=== PATIENT | female | born 2000 | race American Indian/Alaskan Native ===

== ENCOUNTER → 2020-02-28 12:13 | Outpatient (CLI) | payer MEDICAID, OTHER, SELFPAY ==
--- NOTE | 2020-02-28 | DI.RAD.S_ITS ---
PROCEDURE: XR CHEST 2V INDICATIONS: POST COVID-19 CONDITION TECHNIQUE: 2 views of the chest were acquired. COMPARISON: None. FINDINGS: Surgical changes and devices: None. Lungs and pleura: Lungs are clear. No pleural effusions or pneumothorax. Mediastinum: Mediastinal contours are normal. Heart size is normal. Bones and chest wall: No suspicious bony abnormalities. Soft tissues appear unremarkable. IMPRESSION: Normal for age, no residual airspace disease is seen after reported prior atypical/viral pneumonia. Imaging from a prior pulmonary inflammatory event is not available for review.. Dictated by: Ezequiel Ulloa M.D. on 02/28/2020 at 14:34 Approved by: Ezequiel Ulloa M.D. on 02/28/2020 at 14:34
== END ==
PROVIDERS: Referring Provider Physician Assistant; Visit Provider Physician Assistant
DX: Z09 Encounter for follow-up examination after completed treatment for conditions other than malignant neoplasm (principal); Z86.16 Personal history of COVID-19
CPT/HCPCS: 71046

== ENCOUNTER → 2023-01-30 10:14 | Outpatient (CLI) | payer MEDICAID, OTHER, SELFPAY ==
--- NOTE | 2023-01-30 10:16 | DI.US.S_ITS ---
PROCEDURE: US PELVIC COMPLETE INDICATIONS: PELVIC PAIN, MICROSCOPIC HEMATURIA TECHNIQUE: Real-time scanning was performed of the pelvic organs, with image documentation. Additional endovaginal scanning was necessary due to incomplete visualization of the adnexal and endometrial structures by transabdominal scanning. COMPARISON: None. FINDINGS: Uterus: Uterus is anteverted and normal in size at 6.8 x 2.9 x 4.6 cm. The myometrium is homogeneous. The endometrium measures 6.2 mm combined thickness. Ovaries: The right ovary measures 2.6 x 3.4 x 2.8 cm, with a calculated ovarian volume of 13.1 cc. The left ovary measures 4.4 x 2.1 x 3.0 cm, with a calculated ovarian volume of 14.8 cc. The ovaries have a normal sonographic appearance. Less than 12 follicles can be seen in each ovary. No adnexal masses are seen. 2.5 x 2.0 cm hemorrhagic cyst is noted right ovary, and there is a 1.8 x 1.7 cm simple cyst noted in the left ovary. Additionally in the left ovary, there is a 1.2 x 1.3 x 1.4 cm in isoechoic lesion in the left ovary without internal vascularity Other: No pathologic free abdominal or pelvic fluid. IMPRESSION: 1. Isoechoic nodule left ovary 1.4 cm. Differential would include hemorrhagic cyst and less likely mass lesion. Consider follow-up MRI with contrast. 2. Additional 2.5 cm right ovarian hemorrhagic cyst. Approved by: Roscoe Shin M.D. on 01/30/2023 at 14:32
== END ==
PROVIDERS: Referring Provider Physician Assistant; Visit Provider Physician Assistant
DX: N83.201 Unspecified ovarian cyst, right side (principal); N83.9 Noninflammatory disorder of ovary, fallopian tube and broad ligament, unspecified; R31.29 Other microscopic hematuria; R10.2 Pelvic and perineal pain
CPT/HCPCS: 76830; 76856; 93975

== ENCOUNTER 2023-07-03 07:37 | Day surgery (SDC) | payer OTHER, SELFPAY ==
[2023-06-30 08:01] VITALS: BMI 46.0
[2023-07-03] VITALS (11 sets, daily range): BP systolic 97–126; BP diastolic 50–79; PULSE 64–99; RESP 12–18; TEMP 36.2–37.1; O2SAT 98–100; BMI 44.4
--- NOTE | 2023-07-03 | PATH_ITS ---
[facility] Accession Number: [id number] No. of containers..02 Tissue . 01 Material submitted: . PART A: CUL DE SAC - PERITONEAL, RIGHT ANTERIOR CUL DE SAC PART B: ovary - RIGHT OVARIAN CYST WALL . 01 Diagnosis: A. PERITONEUM, RIGHT ANTERIOR CUL-DE-SAC, BIOPSY: Endometriosis. . B. RIGHT OVARIAN CYST WALL, EXCISION: Endometriosis involving ovarian tissue, and forming endometriotic cyst. No evidence of borderline tumor or malignancy. [facility] 07/10/2023 1334 Local . 01 Electronically signed: . Mariel Benoit MD, Pathologist NPI- [id number] . 01 Gross description: . A. Received in formalin with two identifiers and an illegible site, is a navarro membranous soft tissue fragment 0.7 x 0.7 x 0.2 cm. No lesions are identified. One aspect is inked blue, the specimen is bisected, and submitted entirely in cassette A1. B. Received in formalin with two identifiers and right ovarian cyst wall, are multiple navarro membranous soft tissue fragments aggregating to 3.2 x 3.0 x 0.6 cm. Both sides of the membranous tissue are relatively smooth with no excrescenses identified and average 0.3 cm thick. Sectioning reveals navarro, soft cut surface. Submitted entirely in cassettes B1-B3. ([id number]) /[facility] 07/04/2023 2311 Local . 01 Pathologist provided ICD-10: N80.9 . 01 CPT . 384091, [id number] Specimen Comment: A courtesy copy of this report has been sent to [facility] Performed at: [address] [facility], [place], [place] [id number] MD Eleazar Teague MD Phone: [phone]
[2023-07-03] MEDS: LACTATED RINGERS 1,000 ML 42 ML IV ×2 (07:58→10:02)
[2023-07-03] MEDS: SCOPOLAMINE 1 PATCH TOP (07:58)
--- NOTE | 2023-07-03 08:53 | PM.PREOP ---
Pre-operative Note Interval Note History & Physical reviewed/Exam performed by Physician: Yes Changes to H&P: No H&P completed within 30 days and has changed as indicated here:: see H&P from 06/23/23
[2023-07-03] MEDS: ACETAMINOPHEN IV 1,000 MG/100 ML VIAL 400 MG IV (09:10)
--- NOTE | 2023-07-03 09:38 | SUR.OPER ---
Lithotomy on padded OR bed, head on pillow, arms secured on padded arm boards at <90 degrees abduction. Legs secured in padded yellow fins stirrups.
[2023-07-03] MEDS: BUPIVACAINE 0.25% (PF) VIAL 30 ML INJ (10:05)
--- NOTE | 2023-07-03 11:10 | PM.OP.1 ---
Operative Date/Time/Diagnoses Date of procedure: 07/03/23 Time of procedure: 09:15 Pre-op diagnosis: 1. Pelvic pain 2. Imaging findings of endometriosis Post-op diagnosis: same (Confirmed endometriosis visually) Procedure & Clinicians Procedure: Diagnostic laparoscopy Lysis of adhesions Fulguration and resection of endometriosis Right and left ovarian cystectomy Same procedure as scheduled: Yes Indications: 22yo G0 with pelvic pain and imaging findings with possible endometriosis, here for planned diagnostic laparoscopy with possible fulguration of endometriosis. Surgeon: Shira Wood Juvenile Corrections Officer: Cristiano Garza Click Yes if Unassisted: No Anesthesia Type: General Operative Notes Findings: Normal-appearing uterus with endometriotic adhesions noted. Bilateral ovaries with endometriotic adhesions involving bilateral fallopian tubes. Several powder burn lesions and stellate lesions noted throughout the pelvis. Bilateral chocolate cysts noted in the ovaries. Specimen(s): other (1. peritoneal biopsy 2. right ovarian cyst wall) Estimated Blood Loss (mL): 5 Blood products transfused: none Procedure in detail: The risks, benefits, indications and alternatives of the procedure were reviewed with the patient and informed consent was obtained. The pt was taken to the operating room where general anesthesia was obtained without difficulty. The pt was then placed in the low lithotomy position using gel-padded Oscar Stirrups. Sequential compression devices were placed bilaterally for VTE prophylaxis. Pt was then prepped and draped in the usual sterile fashion. A Bahena catheter was placed without difficulty. A sponge stick was placed in the vagina as a means to manipulate the uterus. Attention was then turned to the patient?s abdomen where a 5mm skin incision was made at the base of the umbilicus after it was everted and injected with 0.25% marcaine. A 5mm trocar and sleeve were then carefully introduced into the peritoneal cavity under direct visualization at a 90-degree angle while tenting up the abdominal wall. Intra-peritoneal placement was confirmed under direct visualization with the laparoscope with entry pressure <5mmHg. A pneumoperitoneum was obtained with several liters of CO2 gas, maximum pressure of 15mmHg. Upon entry into the peritoneal cavity, structures immediately below the incision were inspected and found to be free of injury. Two additional 5mm trocars were placed in the left lateral aspect of the abdominal wall, as well as a 5mm trocar in the right lateral aspect of the abdominal wall under direct laparoscopic visualization after injection of 0.25% marcaine at each site. A survey of the pt?s abdomen and pelvis was notable for the above findings. Monopolar scissors were used to lyse several adhesions between the left fallopian tube and left ovary, posterior lower uterine segment and right adnexa, and the right fallopian tube and right ovary. Using an atraumatic grasper, a powder burn lesion noted in the anterior cul-de-sac was grasped and tented up, and the peritoneum was excised with monopolar scissors. This biopsy was then sent to pathology. Several other powder burn lesions and stellate lesions were then fulgurated with monopolar cautery. The right ovary was then evaluated and noted to have a chocolate cyst that ruptured with manipulation. This cyst was then opened further with monopolar cautery, and was suction irrigated. The cyst capsule was then excised from the ovary with monopolar scissors, and the cyst wall was from the ovary bluntly. Hemostasis was assured with monopolar cautery. The left ovary was then evaluated, and noted to have a small chocolate cyst that also was ruptured with manipulation. The opening was suction irrigated, and there was no remaining cyst wall to be removed. Monopolar cautery was then used to assure hemostasis. All pedicles were re-examined and noted to be hemostatic. The gas was then turned off and all CO2 was removed from the pt?s abdomen. The trocars were removed. The skin incision sites were reapproximated using 4-0 monocryl and dermabond. The sponge stick was removed from the vagina, and the bahena catheter was removed from the bladder. All instruments were confirmed to be removed from the vagina. At the completion of the case the sponge and needle counts were correct x 2. The patient tolerated the procedure well and was taken to the PACU in stable condition. Complications: none Post-operative Condition: stable Disposition: PACU Plan for aftercare: Discharge to home once meeting discharge criteria.
[2023-07-03] MEDS: LORazepam 2 MG/ML INJ 0.25 MG IV ×3 (11:28→11:50)
[2023-07-03] MEDS: OXYCODONE IR 5 MG TABLET PO (11:29)
[2023-07-03] MEDS: ONDANSETRON 4 MG/2 ML INJ IV (12:53)
== END 2023-07-03 12:58 | disposition home or self-care (01) ==
PROVIDERS: PCP Family Medicine; Referring Provider Student in an Organized Health Care Education/Training Program; Visit Provider Student in an Organized Health Care Education/Training Program
PROC: 0U5B4ZZ Destruction of Endometrium, Percutaneous Endoscopic Approach (ICD-10-PCS; CPT 58662; principal; 2023-07-03 09:00)
DX: N80.319 Endometriosis of the anterior cul-de-sac, unspecified depth (principal); N80.103 Endometriosis of bilateral ovaries, unspecified depth; N80.203 Endometriosis of bilateral fallopian tubes, unspecified depth; N73.6 Female pelvic peritoneal adhesions (postinfective)
CPT/HCPCS: 58662; 81025; J0136; J1100; J1885; J2060; J2250; J2405; J2704; J3010

== ENCOUNTER → 2023-08-18 13:49 | Outpatient (CLI) | payer OTHER, SELFPAY ==
--- NOTE | 2023-08-18 13:54 | DIET.OUTPTC ---
Dietary Outpatient Consultation Note Consultation Date: 08/18/2023 Assessment: 23 y F referred to dietitian for endometriosis, obesity. Kiara reports wanting help with setting up an anti-inflammatory based eating pattern. 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 Other concerns/barriers include cost of fresh/fruit veg due to finances and sharing household fridge with brother's family (foods bought may not last as long as anticipated). No food related allergies reported Struggles with nausea 1-3x/wk, is doing pelvic floor therapy for constipation related symptoms Diet recall: a: bagel + cream cheese snack- pumpkin seeds L-sandwich (pb&j or turkey and cheese) 4p snack: crackers D--8p:sometimes out to eat, or homemade meal of meat, carb, veg sometimes ice cream, popcorn [facility] supplement daily beverages: iced coffee, water, diet coke activity: walking, surgery recently, previously was doing yoga, pilates Ht: 5 ft 1 in Wt: 234 lb BMI: 44.1 Nutrition Diagnosis: Nutrition related knowledge deficit r/t no previous formal educ aeb assessment Interventions: 1. Anti-inflammatory eating patterns, Med. eating patterns -5+ fruits and veg, plant based proteins, unsaturated fats, adequate protein intake, plate method, fiber, low-cost options -Provided handout 2. Goal setting with IA Goals: 1. Protein source at breakfast - nut butter, low-fat string cheese, or yogurt smoothie (25 g) 2. Storing fruits and vegs at fridge at work to increase intake during the day, 1-2x/d 3. Use of canned/frozen fruits/vegs (unsweetened applesauce, frozen veg at dinner), or brunner salad cooked ahead on Sundays Monitoring/Evaluations: goals, diet recall, labs, f/u in 1 m Electronically Signed by: Sandi Macias 08/18/23 13:54 Clinical Dietitian [address] [address]
== END ==
PROVIDERS: PCP Family Medicine; Referring Provider Student in an Organized Health Care Education/Training Program
DX: N80.9 Endometriosis, unspecified (principal); E66.9 Obesity, unspecified; Z68.41 Body mass index [BMI] 40.0-44.9, adult; Z71.3 Dietary counseling and surveillance
CPT/HCPCS: 97802

== ENCOUNTER → 2023-09-17 13:46 | Outpatient (CLI) | payer OTHER, SELFPAY ==
--- NOTE | 2023-09-17 16:39 | DIET.OUTPTC ---
Dietary Outpatient Consultation Note Consultation Date: 09/17/2023 Assessment: 23 y F referred to dietitian for endometriosis, obesity. Nutrition f/u. Reports recent difficulty getting in lunch consistently when at work and finding it challenging to add feasible and appealing vegetables to intake. Keeping food at work has helped out. 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 Discussed variety of realistic lunch options and feasible vegetable options 2. Increase fiber intake -Reviewed sources, swaps for whole grains, recc amount daily 3. Reviewed label reading for sat. fat, fiber, protein, sodium, added sugars Goals: 1. Consistent lunch (pre-prepped sandwich, yogurt +granola, ww crackers and cheese) 2. Vegetable with dip - ranch or hummus or brunner salad 3. Label reading frozen breakfast options Monitoring/Evaluations: goals, diet recall, labs, f/u in 2 m Electronically Signed by: Sandi Macias 09/17/23 16:39 Clinical Dietitian [address] [address]
== END ==
PROVIDERS: PCP Family Medicine; Referring Provider Student in an Organized Health Care Education/Training Program
DX: N80.9 Endometriosis, unspecified (principal); E66.9 Obesity, unspecified; Z68.41 Body mass index [BMI] 40.0-44.9, adult; Z71.3 Dietary counseling and surveillance
CPT/HCPCS: 97803

== ENCOUNTER 2023-09-30 16:49 | Emergency (ER) | payer OTHER, SELFPAY ==
[2023-09-30] VITALS (7 sets, daily range): BP systolic 112–121; BP diastolic 57–78; PULSE 71–85; RESP 14–18; TEMP 36.3–36.9; O2SAT 97–100; BMI 43.4
[2023-09-30 18:00] LABS: Add Manual Diff / Slide Review NO; Basophils Absolute Auto 100 /uL (0-100); Eosinophils Absolute Auto 100 /uL (0-450); Eosinophils Percent Auto 0.8 % (2-4); Hematocrit 39.3 % (36-46); Hemoglobin 13.1 g/dL (12.0-16.0); Lymphocytes Absolute Auto 3300 /uL (1100-4500); Lymphocytes Percent Auto 29.7 % (25-40); Mean Corpuscular HGB Conc 33.3 % (30-36); Mean Corpuscular Volume 84.3 fL (80-100); Monocytes Absolute Auto 700 /uL (0-900); Monocytes Percent Auto 5.8 % (3-14); Neutrophils Absolute Auto 7000 /uL (1500-7000); Neutrophils Percent Auto 62.7 % (50-75); Platelet Count 485 X10^3/uL (150-400); Red Blood Cell Count 4.66 X10^6/uL (4.0-5.2); Red Cell Distribution Width 13.4 % (11.6-14.8); White Blood Cell Count 11.2 X10^3/uL (4.5-11.0)
[2023-09-30 18:41] LABS: BUN Creatinine Ratio 14.5 (6-22); Blood Urea Nitrogen 12 mg/dL (7-17); Calcium 9.8 mg/dL (8.4-10.2); Carbon Dioxide 24 mmol/L (22-32); Chloride 103 mmol/L (98-107); Estimated Glomerular Filt Rate > 60 mL/min (>60); Glucose 85 mg/dL (70-100); HEMOLYSIS < 15 (0-50); Potassium 3.9 mmol/L (3.4-5.1); Sodium 137 mmol/L (137-145)
--- NOTE | 2023-09-30 18:45 | EKG_ITS ---
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
--- NOTE | 2023-09-30 18:45 | DI.RAD.S_ITS ---
PROCEDURE: XR CHEST 1V INDICATIONS: Shortness of breath TECHNIQUE: One view of the chest was acquired. COMPARISON: [facility], , XR CHEST 2V, 02/28/2020, 13:15. FINDINGS: Surgical changes and devices: None. Lungs and pleura: No dense consolidation or pleural effusion Mediastinum: Normal heart size Bones and chest wall: Degenerative changes IMPRESSION: No acute radiographic abnormality on this limited single view study. Dictated by: Florin Daily M.D. on 09/30/2023 at 19:26 Approved by: Florin Daily M.D. on 09/30/2023 at 19:27
--- NOTE | 2023-09-30 19:57 | ED.GENADULT ---
HPI - General Adult General Chief complaint: Vaginal Bleeding Stated complaint: short of breath, weakness Time Seen by Provider: 09/30/23 17:56 Source: patient Mode of arrival: Ambulatory History of Present Illness HPI narrative: Patient is a 23-year-old female. History of endometriosis. Has been having vaginal bleeding for the past 2 weeks. Yesterday was started on progesterone by a senior quality assurance specialist provider. She was a follow-up with a senior quality assurance specialist provider tomorrow morning. She states that the bleeding has improved but not completely stopped. She was having quite a bit of abdominal cramping. She was here because she was feeling weak and short of breath than she was told by the senior quality assurance specialist provider that she should come to the emergency department of the symptoms develop. No fevers. No coughing. No chest pain. Is having slight sore throat but no sinus congestion. Related Data Previous Rx's Medication Instructions Recorded medroxyprogesterone 10 mg tablet 10 mg PO DAILY 10 days #10 tabs 09/29/23 (Provera) Allergies Allergy/AdvReac Type Severity Reaction Status Date / Time cetirizine Allergy Mild Fever Verified 09/30/23 17:05 Review of Systems Review of Systems Narrative: See HPI Patient History Medical History Endometriosis determined by laparoscopy (~06/2023) Anxiety (~2018) Headache (~2022) Chronic back pain (~2022) Partial blindness Ovarian cyst (~2022) Heavy menstrual period (~2015) Endometrioma of ovary Pelvic pain Obesity, Class III, BMI 40-49.9 (morbid obesity) Surgical History (Updated 07/17/23 @ 12:18 by Shira Wood DO) H/O ovarian cystectomy (~06/2023) Status post laparoscopy with lysis of adhesions (~06/2023) H/O wisdom tooth extraction Family History Father Hypertension Social History household members: family Smoking Status: Never smoker alcohol intake: never substance use type: does not use Smoking Status: Never smoker alcohol intake frequency: holidays/special occasions only Substance Use Type: does not use Exam Initial Vital Signs Initial Vital Signs: Vital Signs Temperature 97.3 F L 09/30/23 17:05 Pulse Rate 84 09/30/23 17:05 Respiratory Rate 14 09/30/23 17:05 Blood Pressure 112/57 L 09/30/23 17:05 Pulse Oximetry 97 09/30/23 17:05 Oxygen Delivery Method Room Air 09/30/23 17:05 Const General: cooperative and comfortable HENMT Head: normal to inspection and normocephalic Resp Effort & Inspection: normal respiratory effort Auscultation: clear to auscultation bilaterally Cardio Rate: regular rate Rhythm: regular rhythm GI Inspection: normal to inspection and non-distended Skin General: no rashes or lesions noted Neuro General: patient alert, patient awake and moves all extremities Course Orders Ordered: ED Orders 09/30/23 17:49 Basic Metabolic Panel Stat Complete Blood Count AUTO DIFF Stat Type and Screen Stat 09/30/23 18:45 XR chest 1V Stat EKG-12 Lead Stat Vital Signs Vital signs: Vital Signs - 8 hr 09/30/23 17:05 09/30/23 18:23 09/30/23 18:23 Temperature 97.3 F L Pulse Rate 84 71 Respiratory Rate 14 Blood Pressure 112/57 L 121/71 Pulse Oximetry 97 100 Oxygen Delivery Method Room Air 09/30/23 18:24 09/30/23 18:30 09/30/23 18:30 Temperature Pulse Rate 83 73 Respiratory Rate 18 Blood Pressure 121/71 117/61 Pulse Oximetry 97 Oxygen Delivery Method 09/30/23 19:00 09/30/23 19:00 09/30/23 19:30 Temperature Pulse Rate 73 Respiratory Rate Blood Pressure 119/72 113/64 Pulse Oximetry 98 Oxygen Delivery Method 09/30/23 19:30 09/30/23 20:07 Temperature 98.5 F Pulse Rate 80 85 Respiratory Rate 18 18 Blood Pressure 117/78 Pulse Oximetry 97 98 Oxygen Delivery Method Room Air Medical Decision Making Lab Data Lab results reviewed: Yes I reviewed the patient's lab results. 09/30/23 17:49 09/30/23 17:49 Labs: Lab Results 09/30/23 Range/Units 17:49 WBC 11.2 H (4.5-11.0) X10^3/uL RBC 4.66 (4.0-5.2) X10^6/uL Hgb 13.1 (12.0-16.0) g/dL Hct 39.3 (36-46) % MCV 84.3 (80-100) fL MCH 28.0 (26-34) PG MCHC 33.3 (30-36) % RDW 13.4 (11.6-14.8) % Plt Count 485 H (150-400) X10^3/uL Neut % (Auto) 62.7 (50-75) % Lymph % (Auto) 29.7 (25-40) % Sherman % (Auto) 5.8 (3-14) % Eos % (Auto) 0.8 L (2-4) % Baso % (Auto) 1.0 (0-2) % Neut # (Auto) 7000 (7151-5190) /uL Lymph # (Auto) 3300 (4081-3685) /uL Sherman # (Auto) 700 (0-900) /uL Eos # (Auto) 100 (0-450) /uL Baso # (Auto) 100 (0-100) /uL Sodium 137 (137-145) mmol/L Potassium 3.9 (3.4-5.1) mmol/L Chloride 103 (98-107) mmol/L Carbon Dioxide 24 (22-32) mmol/L BUN 12 (7-17) mg/dL Creatinine 0.83 (0.52-1.04) mg/dL Estimated GFR > 60 (>60) mL/min BUN/Creatinine Ratio 14.5 (6-22) Glucose 85 (70-100) mg/dL Calcium 9.8 (8.4-10.2) mg/dL Blood Type O Positive Antibody Screen Negative Point of Care Testing Test Results Negative Urine Dip Bedside Urine Glucose Negative Bedside Urine Bilirubin - Negative Bedside Urine Ketone - Negative Urine Specific Lyndon 1.010 Bedside Urine Occult Blood +/- Bedside Urine pH 6.0 Bedside Urine Protein - Negative Bedside Urine Urobilinogen - Negative Bedside Urine Nitrite - Negative Bedside Urine Leukocytes - Negative Esterase Point of care testing: Point of Care Testing Test Results Negative Urine Dip Bedside Urine Glucose Negative Bedside Urine Bilirubin - Negative Bedside Urine Ketone - Negative Urine Specific Lyndon 1.010 Bedside Urine Occult Blood +/- Bedside Urine pH 6.0 Bedside Urine Protein - Negative Bedside Urine Urobilinogen - Negative Bedside Urine Nitrite - Negative Bedside Urine Leukocytes - Negative Esterase Imaging Data Chest x-ray: Radiologist's Impression: PROCEDURE: XR CHEST 1V INDICATIONS: Shortness of breath TECHNIQUE: One view of the chest was acquired. COMPARISON: [facility], CR, XR CHEST 2V, 02/28/2020, 13:15. FINDINGS: Surgical changes and devices: None. Lungs and pleura: No dense consolidation or pleural effusion Mediastinum: Normal heart size Bones and chest wall: Degenerative changes IMPRESSION: No acute radiographic abnormality on this limited single view study. ECG Data Attestation: I personally reviewed and interpreted this ECG as follows: Interpretation: Sinus rhythm Ventricular rate is 71 Normal axis Normal QRS Normal QTC No ST T wave changes MDM Narrative Medical decision making narrative: Patient is afebrile, not anemic, not tachypneic, not tachycardic. Chest x-ray shows no signs of pneumonia. EKG is sinus rhythm. Lungs are clear. Unsure of the exact source of the patient's shortness of breath however does not appear to be an infectious source. Low suspicion for pulmonary embolism. Low suspicion for pulmonary edema. Low suspicion for ACS. Will have the patient continue to take the progesterone. Have her keep her follow-up appointment tomorrow with her senior quality assurance specialist provider. No indication for admission to the hospital. She was given return precautions and follow-up instructions. She expressed understanding and agreement with plan. Discharge Plan Departure Patient Disposition: Home Clinical Impression: Shortness of breath Instructions: DI for Shortness of Breath Activity Restrictions/Additional Instructions: Continue to take the progesterone provided by the senior quality assurance specialist doctor. Keep your scheduled appointment tomorrow morning that you have for a follow-up. Return to the emergency department for new or worsening symptoms. Prescriptions: No Action medroxyprogesterone [Provera] 10 mg tablet 10 mg PO DAILY 10 Days Qty: 10 0RF Referrals: Darrel Ibrahim MD [Primary Care Provider] - Stand Alone Forms: Patient Portal/API
== END 2023-09-30 20:08 | disposition home or self-care (01) ==
PROVIDERS: Student in an Organized Health Care Education/Training Program; Emergency Provider Emergency Medicine; PCP Family Medicine
DX: R06.02 Shortness of breath (principal); R53.1 Weakness; R03.1 Nonspecific low blood-pressure reading
CPT/HCPCS: 71045; 80048; 81003; 81025; 85025; 86850; 86900; 86901; 93005; 99282; 99284

== ENCOUNTER → 2023-11-19 13:55 | Outpatient (CLI) | payer OTHER, SELFPAY ==
--- NOTE | 2023-11-19 15:26 | DIET.OUTPTC ---
Dietary Outpatient Consultation Note Consultation Date: 11/19/2023 Assessment: 23 y F referred to dietitian for endometriosis, obesity. Kiara looking for help with recognizing hunger/fullness cues. Notes lots of bdays in past month and lots of going out to eat. Eat breakfast at 7am, then lunch with kids at 11-1130am (notes is higher in carb - bread and potatoes w/ veg and fruit - and she feels tried after lunch), variable snacks in afternoon, sometimes 4p snack with kids (nuts, crackers, or chips). Notes 4pm snack is usually a social snack with kids. Has dinner and is satisfied afterwards. Reports she is wanting help with identifying hunger/fullness in the afternoon. Feels the 4p snack is unnecessary. Is questioning whether to do an elimination diet to identify what foods are making her inflammed. Has seen this on social media. Interventions: -Discussed hunger/fullness scale, intuitive eating - goal to use it throughout day and when out to eat -Handout on anti-inflammatory nutrition patterns -Reviewed pros and cons of elimination style diet and discussed alternatives. -Discussed addition of protein choice to lunch, short walk on break after lunch to help energy levels -Discussed optimizing nutrition when going out frequently F/u in 3 months. Electronically Signed by: Sandi Macias 11/19/23 15:26 Clinical Dietitian [address] [address]
== END ==
PROVIDERS: PCP Family Medicine; Referring Provider Student in an Organized Health Care Education/Training Program
DX: N80.9 Endometriosis, unspecified (principal); E66.9 Obesity, unspecified; Z71.3 Dietary counseling and surveillance; Z68.41 Body mass index [BMI] 40.0-44.9, adult
CPT/HCPCS: 97803

== ENCOUNTER → 2024-04-15 15:57 | Outpatient (CLI) | payer OTHER, SELFPAY ==
[2024-04-15 20:38] LABS: Urine N gonorrhoeae NOT DETECTED
[2024-04-15 20:39] LABS: Urine Chlamydia NOT DETECTED
== END ==
LOC: LAB 15:57
PROVIDERS: PCP Family Medicine; Visit Provider Obstetrics & Gynecology
DX: Z34.01 Encounter for supervision of normal first pregnancy, first trimester (principal); Z3A.08 8 weeks gestation of pregnancy
CPT/HCPCS: 87491; 87591

== ENCOUNTER → 2024-06-13 15:40 | Outpatient (CLI) | payer OTHER, SELFPAY ==
[2024-06-13 17:02] LABS: Add Manual Diff / Slide Review NO; Basophils Absolute Auto 0 /uL (0-100); Basophils Percent Auto 0.3 % (0-2); Eosinophils Absolute Auto 0 /uL (0-450); Eosinophils Percent Auto 0.4 % (2-4); Hematocrit 34.6 % (36-46); Hemoglobin 11.7 g/dL (12.0-16.0); Lymphocytes Absolute Auto 2500 /uL (1100-4500); Lymphocytes Percent Auto 21.5 % (25-40); Mean Corpuscular HGB Conc 33.9 % (30-36); Mean Corpuscular Hemoglobin 27.8 PG (26-34); Mean Corpuscular Volume 81.8 fL (80-100); Monocytes Absolute Auto 500 /uL (0-900); Monocytes Percent Auto 4.6 % (3-14); Neutrophils Absolute Auto 8400 /uL (1500-7000); Neutrophils Percent Auto 73.2 % (50-75); Platelet Count 460 X10^3/uL (150-400); Red Blood Cell Count 4.22 X10^6/uL (4.0-5.2); Red Cell Distribution Width 15.3 % (11.6-14.8); White Blood Cell Count 11.5 X10^3/uL (4.5-11.0)
[2024-06-13 17:31] LABS: Hemoglobin A1C% w Est Avg Glu 4.4 % (4.0-6.0)
[2024-06-14 15:04] LABS: Hepatitis B Surface Antigen NEGATIVE s/c (NEGATIVE); Rubella Antibody IgG 9.8 IU/mL (>15)
[2024-06-14 15:23] LABS: HIV 1 & 2 Ab/Ag 4th Gen Combo NEGATIVE (NEGATIVE); Hep C Virus Ab w/Reflex Quant NEGATIVE s/c (NEGATIVE)
[2024-06-15 03:41] LABS: RPR Screen Non Reactive (Non Reactive)
[2024-06-15 11:35] LABS: Varicella IgG Antibody Non Reactive (Non Reactive)
[2024-06-16 19:41] LABS: AFP, Serum 22.9 ng/mL (.); Calc Gestational Age Ultrasound (.); Estriol, Free 1.49 ng/mL (.); Inhibin A, MoM 2.25 (.); Maternal Ethnicity Other (.); Maternal Weight 221 lbs (.); Number of Fetuses No (.); OSBR Risk 1 IN 10000 (.); Results Report (.); Test Results *Screen Positive* (.); hCG, MoM 1.64 (.); hCG, Serum 46985 mIU/mL (.)
== END ==
PROVIDERS: Obstetrics & Gynecology; Student in an Organized Health Care Education/Training Program; PCP Family Medicine; Referring Provider Nurse Practitioner Psychiatric/Mental Health; Visit Provider Nurse Practitioner Psychiatric/Mental Health
DX: O09.899 Supervision of other high risk pregnancies, unspecified trimester (principal); Z36.0 Encounter for antenatal screening for chromosomal anomalies; E66.01 Morbid (severe) obesity due to excess calories
CPT/HCPCS: 36415; 80055; 82105; 82677; 83036; 84702; 86336; 86787; 86803; 86850; 86900; 86901; 87086; 87389

== ENCOUNTER → 2024-06-20 14:08 | Outpatient (CLI) | payer OTHER, SELFPAY ==
[2024-06-20 15:14] LABS: Natera Collection Specimen Collected
== END ==
PROVIDERS: PCP Family Medicine; Referring Provider Family Medicine; Visit Provider Student in an Organized Health Care Education/Training Program
DX: O28.5 Abnormal chromosomal and genetic finding on antenatal screening of mother (principal)
CPT/HCPCS: 36415

== ENCOUNTER → 2024-07-08 09:57 | Outpatient (CLI) | payer OTHER, SELFPAY | PROVIDERS: PCP Family Medicine; Visit Provider Obstetrics & Gynecology | DX: R80.9 Proteinuria, unspecified (principal); R82.998 Other abnormal findings in urine | CPT/HCPCS: 87086 ==

== ENCOUNTER → 2024-07-08 13:39 | Outpatient (CLI) | payer OTHER, SELFPAY ==
--- NOTE | 2024-07-08 13:40 | DI.US.S_ITS ---
PROCEDURE: US OB >= 14 WEEKS FETUS INDICATIONS: 20 weeks anatomy scan OUTSIDE/PRIOR DATING DATA: Working MIMA: 11/23/2024. TECHNIQUE: Real-time scanning was performed of the fetus, with image documentation and biometric measurements. Endovaginal scanning: Not performed COMPARISON: None. FINDINGS: General: A single living intrauterine gestation is present. Presentation: Breech. Placenta: Placental position is right fundal , without previa. Amniotic fluid index: 17.7 cm, normal range is 5-24 cm. Single deepest vertical pocket is 5.9 cm. heart rate: 144 beats per minute. Maternal cervical canal: 3.6 cm long. Normal lower limit is 2.5 cm. biometrics: Biparietal diameter: 4.8 cm, 20 weeks 3 days Head circumference: 17.8 cm, 20 weeks 2 days Abdominal circumference: 17.1 cm, 22 weeks 0 days Femur length: 3.1 cm, 19 weeks 4 days Clinically estimated gestational age: 20 weeks 2 days Composite gestational age from present scan: 20 weeks 4 days Estimated weight and percentile: 381 g, 76 percentile Anatomic survey: Neuro: Ventricles are non-dilated at less than 10 mm. Cisterna magna is normal at 3-11 mm. Cerebellum is normal in size and morphology. Nuchal skin fold: Normal at less than 6 mm between 14-21 weeks gestational age. Face: Not well demonstrated. Spine: No evidence for spina bifida. Heart: 4-chambered heart is present. Left outflow tract normal. Right outflow tract not visualized. Diaphragm: Diaphragm is intact. Stomach: Left-sided stomach is present. Kidneys: No hydronephrosis. Normal is less than 5 mm in 2nd trimester, less than 7 mm in 3rd trimester. Cord: 3-vessel cord has orthotopic insertion. Bladder: Normal in size. Extremities: All 4 extremities identified. IMPRESSION: Single living intrauterine at 20 weeks 4 days, MIMA of 11/23/2024. Estimated weight of 381 g, 76 percentile. Facial profile and right ventricular outflow tract not well visualized due to positioning. Remaining anatomic structures are normal. Consider short-term follow-up. We strive to produce accurate, complete, and clear reports of imaging services. To assist us in improving patient care, this report was composed using standard report templates and voice recognition software. Therefore, it may contain abnormal punctuation, insertions and/or omissions. Occasional wrong-word or sound-alike substitutions may occur. Though we review the report and make efforts to correct it, we do recommend that the report be read carefully in proper context to recognize any text inaccuracies. Dictated by: Toño Rowan M.D. on 07/08/2024 at 22:17 Approved by: Toño Rowan M.D. on 07/08/2024 at 22:19
== END ==
PROVIDERS: PCP Family Medicine; Referring Provider Obstetrics & Gynecology; Visit Provider Obstetrics & Gynecology
DX: Z34.02 Encounter for supervision of normal first pregnancy, second trimester (principal); Z3A.20 20 weeks gestation of pregnancy; R80.9 Proteinuria, unspecified; R82.998 Other abnormal findings in urine
CPT/HCPCS: 76811; 87086

== ENCOUNTER → 2024-08-23 13:54 | Outpatient (CLI) | payer OTHER, SELFPAY ==
--- NOTE | 2024-08-23 13:56 | DI.US.S_ITS ---
PROCEDURE: US OB LIMITED INDICATIONS: RE-EVAL OUTSIDE/PRIOR DATING DATA: The calculations are made using the MIMA of 11/23/2024. TECHNIQUE: Real-time scanning was performed of the fetus, with image documentation. Endovaginal scanning: Not performed COMPARISON: [facility], , OB >= 14 WEEKS FETUS, 07/08/2024, 13:51. FINDINGS: A single living intrauterine gestation is present. Presentation: Vertex. Placenta: Placental position is anterior, without previa. Amniotic fluid index: 18 cm, normal range is 5-24 cm. Single deepest vertical pocket is 9.4 cm. heart rate: 162 beats per minute. Maternal cervical canal: 3.9 cm long. Normal lower limit is 2.5 cm. Clinically estimated gestational age: 26 weeks, 6 days . profile and right ventricular outflow tract normal in appearance. IMPRESSION: Single live intrauterine consistent with 26 weeks and 6 days. Normal profile and right ventricular outflow tract. Dictated by: Ronal Perez M.D. on 08/23/2024 at 15:38 Approved by: Ronal Perez M.D. on 08/23/2024 at 15:40
== END ==
PROVIDERS: PCP Family Medicine; Referring Provider Student in an Organized Health Care Education/Training Program; Visit Provider Student in an Organized Health Care Education/Training Program
DX: O99.212 Obesity complicating pregnancy, second trimester (principal); E66.01 Morbid (severe) obesity due to excess calories; Z3A.26 26 weeks gestation of pregnancy
CPT/HCPCS: 76815

== ENCOUNTER → 2024-08-26 10:26 | Outpatient (CLI) | payer OTHER, SELFPAY ==
[2024-08-26 13:01] LABS: Hematocrit 33.5 % (36-46); Hemoglobin 11.5 g/dL (12.0-16.0)
[2024-08-26 13:33] LABS: GTT (PREG) 1 Hour PP 50gm Dose 103 mg/dL (76-139)
== END ==
PROVIDERS: PCP Family Medicine; Referring Provider Student in an Organized Health Care Education/Training Program; Visit Provider Student in an Organized Health Care Education/Training Program
DX: Z13.0 Encounter for screening for diseases of the blood and blood-forming organs and certain disorders involving the immune mechanism (principal); Z13.1 Encounter for screening for diabetes mellitus
CPT/HCPCS: 36415; 82950; 85014; 85018

== ENCOUNTER → 2024-08-31 17:25 | Outpatient (CLI) | payer OTHER, SELFPAY ==
[2024-08-31 17:44] LABS: Appearance Urine UA CLEAR; Bilirubin Urine UA NEGATIVE (NEGATIVE); Color Urine UA YELLOW; Glucose Urine UA NEGATIVE (Negative); Ketones Urine UA NEGATIVE (NEGATIVE); Leukocyte Esterase Urine UA 1+ (NEGATIVE); Nitrite Urine UA NEGATIVE (Negative); Occult Blood Urine UA NEGATIVE (Negative); Protein Urine UA NEGATIVE (Negative); Specific Gravity Urine UA 1.010 (1.000-1.035); Urobilinogen Urine UA 0.2 E.U./dL (0.2)
[2024-08-31 17:45] LABS: pH Urine UA 6.0 (4.5-8.0)
[2024-08-31 17:52] LABS: Culture Indicated Urine Specimen Cultured
== END ==
LOC: LAB 17:26
PROVIDERS: PCP Family Medicine; Referring Provider Student in an Organized Health Care Education/Training Program; Visit Provider Student in an Organized Health Care Education/Training Program
DX: M54.50 Low back pain, unspecified (principal); R35.0 Frequency of micturition
CPT/HCPCS: 81001; 87086

== ENCOUNTER → 2024-09-12 17:35 | Outpatient (CLI) | payer OTHER, SELFPAY ==
[2024-09-12 18:13] LABS: Appearance Urine UA CLEAR; Bilirubin Urine UA NEGATIVE (NEGATIVE); Color Urine UA YELLOW; Glucose Urine UA NEGATIVE (Negative); Ketones Urine UA NEGATIVE (NEGATIVE); Leukocyte Esterase Urine UA TRACE (NEGATIVE); Nitrite Urine UA NEGATIVE (Negative); Occult Blood Urine UA NEGATIVE (Negative); Protein Urine UA NEGATIVE (Negative); Specific Gravity Urine UA 1.020 (1.000-1.035); Urobilinogen Urine UA 0.2 E.U./dL (0.2)
[2024-09-12 18:24] LABS: pH Urine UA 6.0 (4.5-8.0)
[2024-09-12 18:28] LABS: Culture Indicated Urine Specimen Cultured
[2024-09-12 18:32] LABS: Alanine Aminotransferase 30 IU/L (<35); Albumin 3.6 g/dL (3.5-5.0); Albumin Globulin Ratio 1.0 (1.0-2.8); Alkaline Phosphatase 270 U/L (38-126); Blood Urea Nitrogen 8 mg/dL (7-17); Calcium 8.8 mg/dL (8.4-10.2); Carbon Dioxide 19 mmol/L (22-32); Chloride 106 mmol/L (98-107); Estimated Glomerular Filt Rate > 60 mL/min (>60); Globulin 3.5 g/dL (1.7-4.1); Glucose 81 mg/dL (70-99); HEMOLYSIS < 15 (0-50); Potassium 4.1 mmol/L (3.4-5.1); Sodium 134 mmol/L (137-145); Total Protein 7.1 g/dL (6.3-8.2)
== END ==
PROVIDERS: PCP Family Medicine; Referring Provider Student in an Organized Health Care Education/Training Program; Visit Provider Student in an Organized Health Care Education/Training Program
DX: R35.0 Frequency of micturition (principal); O99.711 Diseases of the skin and subcutaneous tissue complicating pregnancy, first trimester; L29.9 Pruritus, unspecified; O99.712 Diseases of the skin and subcutaneous tissue complicating pregnancy, second trimester
CPT/HCPCS: 36415; 80053; 81001; 82239; 87086

== ENCOUNTER 2024-10-19 11:53 | Outpatient (CLI) | payer OTHER, SELFPAY | END 2024-10-19 12:48 | disposition home or self-care (01) | LOC: LABOR 12:29 → OB 10-21 10:38 | PROVIDERS: PCP Family Medicine; Referring Provider Family Medicine; Visit Provider Family Medicine | DX: O26.643 Intrahepatic cholestasis of pregnancy, third trimester (principal); Z3A.35 35 weeks gestation of pregnancy | CPT/HCPCS: 59025; G0378; G0379 ==

== ENCOUNTER 2024-10-28 14:37 | Outpatient (CLI) | payer OTHER, SELFPAY | END 2024-10-28 15:36 | disposition home or self-care (01) | LOC: LABOR 15:34 → OB 10-31 10:32 | PROVIDERS: PCP Family Medicine; Referring Provider Obstetrics & Gynecology; Visit Provider Obstetrics & Gynecology | DX: O26.643 Intrahepatic cholestasis of pregnancy, third trimester (principal); Z3A.36 36 weeks gestation of pregnancy | CPT/HCPCS: 59025; 87653; G0378; G0379 ==

== ENCOUNTER → 2024-10-28 15:45 | Outpatient (CLI) | payer OTHER, SELFPAY ==
[2024-10-29 13:58] LABS: Strep Grp B PCR NEG for Grp B Strep
== END ==
LOC: LAB 15:47
PROVIDERS: PCP Family Medicine; Visit Provider Obstetrics & Gynecology
DX: O09.93 Supervision of high risk pregnancy, unspecified, third trimester (principal); Z3A.36 36 weeks gestation of pregnancy
CPT/HCPCS: 87653

== ENCOUNTER 2024-11-02 18:30 | Inpatient (IN) | payer OTHER, SELFPAY ==
[2024-11-02 18:53] VITALS: BP 127/60
[2024-11-02 20:44] LABS: Add Manual Diff / Slide Review NO; Hematocrit 32.9 % (36-46); Hemoglobin 11.4 g/dL (12.0-16.0); Lymphocytes Absolute Auto 2600 /uL (1100-4500); Mean Corpuscular HGB Conc 34.6 % (30-36); Mean Corpuscular Hemoglobin 29.1 PG (26-34); Mean Corpuscular Volume 84.3 fL (80-100); Platelet Count 418 X10^3/uL (150-400)
--- NOTE | 2024-11-02 20:59 | P.HPOB_ITS ---
OB HPI Date/Time Date of admission: 11/02/24 Date Patient Seen: 11/02/24 Time Patient Seen: 20:45 History of Present Condition Chief complaint: induction MIMA Calculator 2 Estimated Delivery Date Method Current WG Current Estimate 11/23/24 LMP (Certain) 37w 0d Other Estimates 11/25/24 Ultrasound #1 36w 5d : 1 Para: 0 Narrative: Patient presents for scheduled induction of labor. She is feeling well. She reports a few noticable contractions, none are significantly painful. Baby is moving normally. Reports her itching has improved on ursodiol. care: good care Dating criteria OB: LMP confirmed by 1st trimester US Ultrasounds: normal mid trimester US Obstetrical complications: other (Cholestasis of ) Indications Indication for induction OB: other (Cholestasis of ) Preadmission Labs Last OB Lab Results: 2 Blood Type O Positive Today, 19:40 Antibody Screen Negative Today, 19:40 Hct, (36-46) 32.9 % L Today, 19:40 Hgb, (12.0-16.0) 11.4 g/dL L Today, 19:40 Hep Bs Antigen, (NEGATIVE) Negative s/c 06/13/24, 15: 54 Hepatitis C Antibody, (NEGATIVE) Negative s/c 5, 15:54 Rubella Antibody, (>15) 9.8 IU/mL L 06/13/24, 15:54 VZV IgG Antibody, (Non Reactive) Non reactive 5, 15:54 Glucose 1 Hr 50 gm, (76-139) 103 mg/dL 08/26/24, 1 0:46 Hemoglobin A1c, (4.0-6.0) 4.4 % 06/13/24, 15:5 4 Group B Strep (PCR) Neg for grp b strep 10/28/24, 15:45 Glucose Tolerance Testin hr (103) -: Chlamydia screen: negative, Gonorrhea screen: negative and Urine: positive (Mixed FloraMixed Jory) Genetic Screens: Quad screen: Abnormal (Elevated trisomy risk) and Cell-free DNA: Normal External Labs Blood type OB HPI: O (+) positive -: Antibody screen: negative, HBsAG: negative, HIV: negative, RPR/VDLR: negative, Chlamydia screen: negative, Gonorrhea screen: negative, GBS status: negative and Urine: positive (Mixed FloraMixed Jory) -: Rubella: not immune and Varicella: immune HCAB: negative Evaluation Evaluation Baseline heart rate: 140 Variability: Moderate (6-25) monitor accelerations: Present Monitor Decelerations: Absent Contraction Frequency (minutes): 5 Uterine Contraction Intensity: Mild Category of Tracing: Reactive Status: Category l PFSH Medical History Abnormal uterine bleeding (AUB) Endometriosis determined by laparoscopy (~06/2023) Headache (~2022) Endometrioma of ovary (~2022) Surgical History H/O ovarian cystectomy (~06/2023) Status post laparoscopy with lysis of adhesions (~06/2023) H/O wisdom tooth extraction Family History Father Hypertension Mother Skin cancer Social History marital status: unmarried,single number of children: 0 household members: family (parents) lives independently: Yes caregiver/support person: No housing: house pets and animals: Yes (cats) education level: college (associate's degree, in school for bachelor's) 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 special reba needs: No travel history: over 6 months ago seatbelt use: always helmet use: Yes water heater temp set < 120 deg: Yes working smoke detector in home: Yes fire extinguisher in home: Yes carbon monox detector in home: Yes firearms in home: Yes firearms unloaded and locked: Yes do you feel safe at home: Yes Smoking Status: Never smoker second hand exposure: No alcohol intake: never substance use type: does not use during the past year weight has: decreased > 10 lbs (intentional 20 lb loss) well-balanced diet: daily or most days daily servings fruits/ve or more times/day caffeine: Yes (typically 4 shots espresso, now half-caf or decaf) Type(s) of exercise: walking and yoga Meds Home Medications and Allergies Home Medications ?Medication ?Instructions ?Recorded ?Confirmed ?Type YSQ85-CP 400 mcg-om3 35 mg-dha 25 tab PO 04/05/2405/03 History mg-epa 5 mg-fish oil chewable tablet magnesium glycinate mg PO 04/05/24 10/12/24 Hist ory hydroxyzine HCl 25 mg tablet 25 mg PO BID PRN anxiety #20 tabs 04/15/24 11/02/24 Rx omeprazole 40 mg capsule,delayed 40 mg PO DAILY #30 ca ps 06/10/24 11/02/24 Rx release ursodiol 400 mg capsule 400 mg PO TID #90 caps 09/1511/02/24 Rx Allergies Allergy/AdvReac Type Severity Reaction Status Date / Time No Known Drug Allergies Allergy Unverified 10/12/24 14:04 Review of Systems Review of Systems ROS: Yes All systems reviewed with the patient and are negative except as otherwise documented Integumentary/Breasts Skin/Breast: Reports pruritus OB Exam HENMT Head: normocephalic and atraumatic Resp Effort & Inspection: normal respiratory effort Cardio Rate: regular rate Extremities Lower extremity: Yes normal to inspection GI Inspection: distended (Gravid) Palpation: Yes soft External Female Exam: Yes normal external appearance Presentation: vertex Objective Imaging Bedside US: My impression: Living IUP, vertex presentation, LOP position, anterior right placenta, grossly adequate fluid Labs 11/02/24 19:40 Labs: Laboratory Results - last 24 hr 11/02/24 19:40 WBC 11.1 H RBC 3.90 L Hgb 11.4 L Hct 32.9 L MCV 84.3 MCH 29.1 MCHC 34.6 RDW 13.3 Plt Count 418 H Neut % (Auto) 71.3 Lymph % (Auto) 23.0 L [place] % (Auto) 5.1 Eos % (Auto) 0.3 L Baso % (Auto) 0.3 Neut # (Auto) 7900 H Lymph # (Auto) 2600 [place] # (Auto) 600 Eos # (Auto) 0 Baso # (Auto) 0 Assessment and Plan Assessment and Plan Assessment and Plan narrative: IUP at 37w0d - GBS neg - Reassuring status Cholestasis of - Continue ursodiol - Continuous monitoring at this time Induction of Labor - begin with cervical ripening as discussed with primary OB provider. PO cytotec 50 mcg q 6 H ordered overnight. Abnormal genetic screening - msAFP Quad higher risk of trisomy - cfDNA is low risk BMI > 40 H/o Anxiety Rubella Non-immune Zoe Mckeon DO Time-Based Coding :: 65 spent with patient and on the chart (including review of chart, obtaining history, exam, reviewing outside data, placing orders, documenting exam and treatment plan, and counseling patient) on 11/02/24.
--- NOTE | 2024-11-03 06:49 | PM.OBPNLAB ---
Pain Control Pain control: tolerating well Pelvic Exam Dilation (cm): 1 Effacement (%): 60 station: -4 Amniotic membrane status: Intact Contractions Contractions on admission: regular Monitor mode: External Contraction frequency (min): 3 Contraction intensity: Moderate Status status: Category l Heart Rate Baseline: 125 Monitor Accelerations: Present Monitor Decelerations: Absent Monitor Variability: Moderate Assessment and Plan Assessment: induction ongoing Plan: continuous present management Comments: S/p 2nd dose PO cytotec at 0559 AM Challenges with EFM due to body habitus and borderline polyhydramnios. Plan FSE once safe. Zoe Mckeon DO
--- NOTE | 2024-11-03 07:46 | PM.OBPNLAB ---
Date/Time Date Patient Seen: 11/03/24 Time Patient Seen: 07:30 Pelvic Exam Effacement (%): 60 station: -4 Amniotic membrane status: Intact Contractions Monitor mode: External Contraction frequency (min): 3 Contraction intensity: Moderate Status status: Category l Assessment and Plan Comments: Discussed with patient recommendation for cervical ripening balloon to continue induction. Reviewed risks and benefits. She is open to the idea of ripening balloon but prefers to take a nap first. RN attempting wireless monitor placement to allow patient to move more readily and improve comfort. Plan at this time is to reassess at noon, and consider balloon placement at that time. Patient amenable.
[2024-11-03] MEDS: BACITRACIN 28 GM OINT 1 APPLIC TOP (11:30)
--- NOTE | 2024-11-03 12:40 | PM.OBPNLAB ---
Date/Time Date Patient Seen: 11/03/24 Time Patient Seen: 12:40 Pain Control Pain control: tolerating well Pelvic Exam Amniotic membrane status: Intact Contractions Monitor mode: External Contraction frequency (min): 3 Contraction pattern: Regular Contraction intensity: Moderate Status status: Category l Assessment and Plan Assessment: induction ongoing Comments: Assessed patient at bedside. She has just eaten lunch. She is tolerating contractions well, continues to feel them. Had to have IV replaced due to infiltration. We reviewed her induction thus far. She is s/p 2 doses of PO cytotec. Recommended continued induction at this time, starting with cervical exam now. Reviewed options of continuing induction with cook balloon, additional cytotec, or even pitocin depending on her cervical exam. Patient states she is feeling overwhelmed with interventions at this time. She is feeling uncomfortable from having to remain in one position for monitoring. Abdomen is uncomfortable from the attempts at wireless monitor placement. Uncomfortable from her infiltrated IV and requiring a new IV placement. She would like to take a walk and calm down prior to cervical exam or any additional interventions. She will let us know when she is ready to continue induction. She is open to a cervical exam and possible balloon placement when she feels ready, however she would like to avoid pitocin as much as possible. Zoe Mckeon, DO
--- NOTE | 2024-11-03 13:56 | PM.OBPNLAB ---
Date/Time Date Patient Seen: 11/03/24 Time Patient Seen: 13:56 Pain Control Pain control: tolerating well Comments: Nitrous Pelvic Exam Dilation (cm): 2 Effacement (%): 70 station: -3 Amniotic membrane status: Intact Comments: soft, anterior Contractions Monitor mode: External Contraction frequency (min): 2 Contraction pattern: Regular Contraction intensity: Moderate Status status: Category l Monitor Accelerations: Present Monitor Decelerations: Absent Monitor Variability: Moderate Assessment and Plan Assessment: induction ongoing Comments: S/p 3rd dose PO cytotec. Patient amenable to bahena bulb placement. Nitrous for pain relief is effective for her. Bahena bulb successully placed manually, with use of stylet, then filled with 40 mL saline. Patient tolerated the procedure well. Zoe Mckeon DO
--- NOTE | 2024-11-03 23:49 | P.PNOB_ITS ---
Date/Time Date Patient Seen: 11/03/24 Time Patient Seen: 23:49 (Bedside huddle) Pain Control Pain control: tolerating well Pelvic Exam Dilation (cm): 3 Effacement (%): 70 station: -3 Amniotic membrane status: Intact Contractions Monitor mode: External Contraction frequency (min): 3 Contraction pattern: Regular Contraction intensity: Moderate Status status: Category l Monitor Accelerations: Present Monitor Decelerations: Absent Monitor Variability: Moderate Assessment and Plan Assessment: induction ongoing Comments: Discussed with patient induction thus far. She is S/p 3 doses PO cytotec and bahena bulb augmentation. Balloon out about 8 hours ago, and last cytotec around 1 pm. At 6 hours from the cytotec, she was fiona q 2 minutes, so decision was made to monitor additional 4 hours and repeat cervical exam. Her repeat cervical exam just now shows no significant change. She reports more pelvic pressure. Particularly, she notices increased pressure when she is able to get up an move. monitoring remains challenging, and she needs to be supine in one position to get a good NST. We reviewed her induction and options for continuing, including pitocin augmentation which was recommended, and AROM which was not recommended at this time due to unengaged head. We reviewed the pros and cons of pitocin augmentation, and she expressed that she very much hoped to avoid pitocin. She felt like she was working best with her body when she was able to move. We reviewed that with no significant change in the past 4 hours, pitocin is recommended now to augment labor and she expressed understanding of this recommendation. We discussed the patient wishes for additional expectant management for now: As FHT is category I, it is reasonable to intermittently monitor at this time, and allow for free movement so that the patient can work with her body and hopefully her labor will progress. We discussed that if there is no significant cervical change in the next 4 hours, t hen pitocin needs to be initiated. She is amenable at that time and expresses appreciation for being able to move freely for the next period of time. Plan for NST in 2 hours, recheck cervix in 4 hours, then initiate pitocin PRN. Once safe, plan for AROM and internal monitoring. Zoe Mckeon, DO
[2024-11-04] MEDS: CALCIUM CARBONATE 500 MG TAB 1000 MG PO ×4 (01:56→20:57)
--- NOTE | 2024-11-04 05:37 | PM.OBPNLAB ---
Date/Time Date Patient Seen: 11/04/24 Time Patient Seen: 05:30 Pain Control Pain control: tolerating well Pelvic Exam Dilation (cm): 3 Effacement (%): 70 station: -3 Amniotic membrane status: Intact Contractions Monitor mode: External Contraction frequency (min): 3 Contraction pattern: Regular Contraction intensity: Moderate Status status: Category l Monitor Accelerations: Present Monitor Decelerations: Absent Monitor Variability: Moderate Assessment and Plan Assessment: induction ongoing Plan: begin patient augmentation Comments: Patient amenable to pitocin. Begin now. Zoe Mckeon DO
[2024-11-04] MEDS: LACTATED RINGERS 1,000 ML 100 ML IV (06:06)
[2024-11-04] MEDS: OXYTOCIN PREMIX 30 UNIT/500 ML PLAST..BAG IV (06:36)
--- NOTE | 2024-11-04 13:30 | PM.OBPNLAB ---
Date/Time Date Patient Seen: 11/04/24 Time Patient Seen: 12:30 Pain Control Pain control: tolerating well Comments: feeling contractions stronger and pressure but otherwise tolerating well. Pelvic Exam Dilation (cm): 4.5 Effacement (%): 70 station: -2 Amniotic membrane status: Bulging Contractions Contractions on admission: regular Monitor mode: External Pitocin rate (mU/min): 10 Contraction frequency (min): 3 Contraction duration (min): 1 Contraction pattern: Regular Contraction phase: Resting Contraction intensity: Moderate Status status: Category l Heart Rate Baseline: 140 Monitor Accelerations: Present Monitor Decelerations: Absent Monitor Variability: Moderate Comments: category 1 tracing Assessment and Plan Plan: continuous present management Comments: Payal is a 24yo G1 @ 37wks ongoing induction of labor for intrahepatic cholestasis. s/p misoprostol x 3 doses yesterday was active and attempting to get into active labor without pitocin s/p bahena balloon- 40cc, started on pitocin, currently at 10mu/min-- continue to titrate per protocol cervix - 4.5/70/-2, bulging membranes FHTs category 1 we discussed amniotomy to expedite delivery. discussed benefit of progressing to active labor without needing to titrate pitocin up more and expedited delivery vs continuing pitocin titration and deferring amniotomy. patient prefers to defer amniotomy for now and would like to work on movement and position changes to further progress labor. we discussed amniotomy in the next 3-4 hours and patient seem agreeable to this. continue current management anticipate
--- NOTE | 2024-11-04 18:09 | PM.OBPNLAB ---
Date/Time Date Patient Seen: 11/04/24 Time Patient Seen: 17:20 Pain Control Pain control: tolerating well Comments: using nitrous gas as needed but otherwise doing well with labor pains Pelvic Exam Dilation (cm): 5.5 Effacement (%): 70 station: -2 Amniotic membrane status: Ruptured Comments: AROM performed- moderate clear fliud, Contractions Contractions on admission: regular Monitor mode: External Pitocin rate (mU/min): 18 Contraction frequency (min): 3 Contraction duration (min): 1 Contraction pattern: Regular Contraction phase: Resting Contraction intensity: Moderate Status status: Category l Heart Rate Baseline: 140 Monitor Accelerations: Present Monitor Decelerations: Absent Monitor Variability: Moderate Comments: categry 1 tracing Assessment and Plan Assessment: induction ongoing Plan: continuous present management Comments: AROM performed- moderate clear lfuid exam- 5.5/70/-2 FHTs category 1 pitocin currently at 18mu/min patient signed out to Dr. Mckeon (recreational assistant physician)-- patient and nurse aware that she will assuming care.
--- NOTE | 2024-11-04 20:10 | PM.OBPNLAB ---
Date/Time Date Patient Seen: 11/04/24 Time Patient Seen: 20:11 Pain Control Pain control: tolerating well Pelvic Exam Dilation (cm): 5.5 Effacement (%): 70 station: -2 Amniotic membrane status: Ruptured Contractions Contractions on admission: irregular Monitor mode: External Contraction frequency (min): 3 Contraction pattern: Regular Contraction phase: Resting Contraction intensity: Moderate Status status: Category l Assessment and Plan Assessment: induction ongoing (Entering active phase) Plan: continuous present management Comments: Continue troubleshooting FHT and tocometry to get continuous tracing. FHT is reassuring. Discussed possibility of FSE. Zoe Mckeon DO
[2024-11-04 22:24] LABS: Add Manual Diff / Slide Review NO; Hematocrit 34.7 % (36-46); Hemoglobin 11.7 g/dL (12.0-16.0); Lymphocytes Absolute Auto 2100 /uL (1100-4500); Mean Corpuscular HGB Conc 33.8 % (30-36); Mean Corpuscular Hemoglobin 28.7 PG (26-34); Mean Corpuscular Volume 85.0 fL (80-100); Platelet Count 427 X10^3/uL (150-400)
[2024-11-04 22:27] LABS: Alanine Aminotransferase 14 IU/L (<35); Albumin 3.8 g/dL (3.5-5.0); Albumin Globulin Ratio 1.1 (1.0-2.8); Alkaline Phosphatase 159 U/L (38-126); Blood Urea Nitrogen 11 mg/dL (7-17); Calcium 9.6 mg/dL (8.4-10.2); Carbon Dioxide 19 mmol/L (22-32); Chloride 108 mmol/L (98-107); Estimated Glomerular Filt Rate > 60 mL/min (>60); Globulin 3.4 g/dL (1.7-4.1); Glucose 105 mg/dL (70-99); HEMOLYSIS < 15 (0-50); Potassium 4.1 mmol/L (3.4-5.1); Sodium 135 mmol/L (137-145); Total Protein 7.2 g/dL (6.3-8.2)
[2024-11-05] MEDS: LACTATED RINGERS 1,000 ML 50 ML IV ×2 (00:43→05:10)
--- NOTE | 2024-11-05 03:36 | PM.OBPNLAB ---
Date/Time Date Patient Seen: 11/05/24 Time Patient Seen: 03:36 Pain Control Pain control: other Comments: Patient struggling to cope. Has not been able to rest. Pelvic Exam Dilation (cm): 5.5 Effacement (%): 70 station: -2 Amniotic membrane status: Ruptured Contractions Monitor mode: External Contraction frequency (min): 3 Contraction pattern: Regular Contraction phase: Resting Contraction intensity: Moderate Status status: Category l Assessment and Plan Assessment: induction ongoing Comments: Patient requesting conversation. I arrived at bedside to discuss labor progress thus far. Patient feeling exhausted, has not been able to sleep. Struggling with back pain and pressure. Has not been able to get comfortable. Reports her ability to cope is limited now. Recent check unchanged since AROM and she is feeling discouraged. She is requesting elective section. Together we discussed her labor progress thus far. I reviewed medical indications for section, and she does not meet this criteria at this time. We discussed risks and benefits of C section. At this time, we reviewed that the risks likely outweigh the benefits both to her and the baby. She has been hesitant about epidural namely because many other moms told her Don't get the epidural and she is concerned about more back pain. We discussed that spinal anesthesia is used for C section, and reviewed the differences. She had not realized that proceeding to C section would also require this type of anesthetic. We reviewed at this time the benefit of epidural allowing her improved pain control and ability to get some sleep. She would like to get an epidural. After she rests, if she still decides she would like an elective C section then we will revisit that conversation at that time. Failed Induction criteria were reviewed including the recommendation for at least 18 hours of pitocin after membrane rupture. This would be at noon. Plan to assess again around that time, or sooner as needed. Zoe Mckeon, DO
--- NOTE | 2024-11-05 04:01 | P.PCN_ITS ---
[facility] Pre-procedure Procedure: Continuous Lumbar Epidural for L&D Attending OB provider: Zoe Mckeon PMH/ROS narrative: at 37+ EGA IOL for cholestatis of . No significant PMH. BMI 47. ASA Class: III (BMI 47) Labs: Hct 34.7 % (36-46) L 11/04/24 22:10 Plt Count 427 X10^3/uL (150-400) H 11/04/24 22:10 Medications: Current Medications Generic Name Dose Route Start Last Admin Trade Name Freq PRN Reason Stop Dose Admin Calcium Carbonate 1,000 mg 11/02/24 21:10 11/04/24 20:57 Calcium Carbonate 500 Mg Tab PO 1,000 mg Q2HR PRN Administration Dyspepsia Carboprost Tromethamine 250 mcg 11/02/24 21:10 Carboprost 250 Mcg/Ml Ampul IM Q90M PRN Bleeding Hydroxyzine HCl 25 mg 11/02/24 22:06 Hydroxyzine Hcl 25 Mg Tablet PO BID PRN Anxiety Oxytocin/Lactated Ringer's 30 unit in 500 mls @ 200 mls/hr 11/02/24 21:10 Oxytocin Premix IV CONT PRN Bleeding Protocol Tranexamic Acid 1,000 mg/ 100 mls @ 600 mls/hr 11/02/24 21:10 Sodium Chloride IV NOW PRN Bleeding Oxytocin/Lactated Ringer's 30 unit in 500 mls @ 1 mls/hr 11/04/24 05:40 11/04/24 06:36 Oxytocin Premix IV 1 milliunit/min TITRATE FRANKLYN 1 mls/hr Protocol Administration 1 MILLIUNIT/MIN Lidocaine HCl 20 ml 11/02/24 21:10 Lidocaine 1% 20 Ml INJ INTRA-OP PRN Post Delivery Methylergonovine Maleate 0.2 mg 11/02/24 21:10 Methylergonovine 0.2 Mg Tablet PO Q6HR PRN Heavy Bleeding Methylergonovine Maleate 0.2 mg 11/02/24 21:10 Methylergonovine 0.2 Mg/Ml Vial IM NOW PRN Bleeding Mineral Oil 30 ml 11/02/24 21:10 Mineral Oil 30 Ml Udc TOP PRN PRN Version Misoprostol 800 mcg 11/02/24 21:10 Misoprostol 200 Mcg Tablet LA NOW PRN Bleeding Misoprostol 400 mcg 11/02/24 21:10 Misoprostol 200 Mcg Tablet SL NOW PRN Bleeding Misoprostol 50 mcg 11/02/24 21:10 11/03/24 05:59 Misoprostol 25 Mcg Tablet PO 50 mcg Q6H PRN Administration cervical ripening Naloxone HCl 0.2 mg 11/02/24 21:10 Naloxone 0.4 Mg/Ml Vial IV Q2MIN PRN Opiate Reversal Ondansetron HCl 4 mg 11/02/24 21:10 Ondansetron 4 Mg/2 Ml Inj IV Q4HR PRN Nausea And Vomiting Oxytocin 10 unit 11/02/24 21:10 Oxytocin 10 Unit/Ml Vial IM NOW PRN Bleeding Ursodiol 300 mg 11/02/24 22:15 11/04/24 21:09 Ursodiol 300 Mg Capsule PO 300 mg TID FRANKLYN Administration Allergies: Allergies Allergy/AdvReac Type Severity Reaction Status Date / Time No Known Drug Allergies Allergy Unverified 10/12/24 14:04 Procedure Insertion date: 11/05/24 Insertion time: 04:26 Prep/Local: betadine x3 and 1% lidocaine Interspace: L34 Patient position: sitting Needle: 18 gauge Openbucks (CSE: 27g Pencan through Hustead, clear CSF, 1mL 0.25% MPF bupiv) Loss of resistance with: saline MARIANNE at (cm): 8 Catheter placed at SKIN (cm): 14 Catheter in SPACE (cm): 6 Insertion: No CSF, No Blood, No Paresthesia with insertion, No Paresthesia with injection and No Test dose reaction Initial Medications TEST DOSE time: 04:28 TEST DOSE: 1.5% lidocaine with epinephrine 1:200k (mL): 3 BOLUS DOSE time: 04:40 BOLUS DOSE (mL): 4 BOLUS DOSE med: other (infusate) Infusion INFUSION: 0.125% bupivacaine and with fentanyl 2 mcg/mL Initial rate (mL/hr): 8 Post-procedure Anesthesia date START: 11/05/24 Anesthesia time START: 04:07 Anesthesia date END: 11/05/24 Anesthesia time END: 13:53 Post-procedure Anesthesia Assessment: Yes CV function: HR/BP stable, Yes Resp function: RR/sat/airway adequate, Yes Post-op hydration adequate, Yes Pain control adequate, Yes Nausea & vomiting absent, Yes Temperature > 36 C, Yes Mental status appropriate and No Anesthesia complications
--- NOTE | 2024-11-05 10:54 | PM.OBPNLAB ---
Date/Time Date Patient Seen: 11/05/24 Time Patient Seen: 10:55 Pain Control Pain control: epidural Pelvic Exam Dilation (cm): 10 Effacement (%): 100 station: +1 Amniotic membrane status: Ruptured Contractions Monitor mode: External Pitocin rate (mU/min): 20 Contraction frequency (min): 5 Contraction pattern: Regular Contraction phase: Resting Contraction intensity: Moderate Status status: Category l Monitor Accelerations: Present Monitor Decelerations: Absent Monitor Variability: Moderate Assessment and Plan Assessment: active labor and induction ongoing Comments: Begin pushing. Epidural working well. Zoe Mckeon DO
[2024-11-05] MEDS: FENT 2MCG/ML BUPIV 0.125% EPI 200 MCG/100 ML PLAST..BAG 8 MCG EPIDURAL (11:30)
--- NOTE | 2024-11-05 12:46 | PM.OBPNLAB ---
Date/Time Date Patient Seen: 11/05/24 Time Patient Seen: 12:46 Pain Control Pain control: tolerating well Pelvic Exam Dilation (cm): 10 Effacement (%): 100 station: +3 Amniotic membrane status: Ruptured Contractions Monitor mode: External Pitocin rate (mU/min): 20 Contraction frequency (min): 5 Contraction pattern: Regular Contraction phase: Resting Contraction intensity: Moderate Status status: Category l Monitor Accelerations: Present Monitor Decelerations: Absent Monitor Variability: Moderate Assessment and Plan Assessment: active labor Plan: continuous present management Comments: In to assess pushing. She is doing very well, head now +3 station with vertex navigating under pubic bone. Excellent maternal effort, great strength with contractions. Patient feeling encouraged by excellent progress. Expect soon. Zoe Mckeon, DO
--- NOTE | 2024-11-05 14:23 | P.PCNOB_ITS ---
Events: Labor Induction Labor & Delivery Delivery date: 11/05/24 Delivery Time: 13:45 Intrapartal Events: Prolonged Labor > 20 hours Cervical ripening method: per misoprostal protocol (With bahena bulb) Induction method: per pitocin protocol Delivery augmentation: rupture of membranes Delivery monitor: external FHT Route of delivery: Episiotomy description: None L&D Laceration Description: Cervical - 3rd Degree (Grade 3A, total length 11 cm) Delivery repair: vicryl Estimated blood loss (mL): 150 Quantitative Blood Loss: 138 Anesthesia Type: Epidural Narrative: The patient presented for scheduled induction of labor for cholestasis. She was GBS negative. The FHT was category 1 reassuring. She had Cytotec cervical ripening and a Bahena bulb. She had Pitocin augmentation. She had AROM performed. She had an epidural placed. She continued to progress after and became completely dilated. She pushed well. The baby delivered and was placed on the mother's chest. Delayed cord clamping was performed. The cord was doubly clamped and cut. Cord blood was obtained. The placenta then delivered shortly after. There was a stage IIIA laceration identified with extension into the muscle fibers. This was repaired in the usual fashion using 2 and 3-0 Vicryl. Hemostasis was ensured. There was fundal firmness and minimal bleeding at the end of the procedure. Posterior. The perineum was intact. The patient was stable throughout transferred to in stable condition. [place] Baby 1: Infant gender: Male Presentation: vertex Position: Right Occiput Anterior Placenta delivery description: Spontaneous Cord Vessel Description: 3 Vessels and Around Extremity x2 (Left leg) score (1 min): 8 score (5 min): 9 weight: 7 lb 9.5 oz Plan for aftercare: Routine care
[2024-11-05] MEDS: IBUPROFEN 600 MG TABLET PO ×2 (15:19→20:50)
[2024-11-05] MEDS: DERMOPLAST SPRAY 20% 60 ML 1 SPRAY TOP (15:19)
[2024-11-05] MEDS: ACETAMINOPHEN 325 MG TABLET 650 MG PO ×2 (16:30→20:53)
[2024-11-06] MEDS: ACETAMINOPHEN 325 MG TABLET 650 MG PO ×3 (03:01→15:02)
[2024-11-06] MEDS: IBUPROFEN 600 MG TABLET PO ×3 (03:01→15:02)
--- NOTE | 2024-11-06 10:17 | P.DS_ITS ---
Discharge Providers Provider Date of admission: 11/02/24 18:30 Discharge Date: 11/06/24 Primary care physician: Darrel Ibrahim MD Consults: 11/02/24 21:10 Consult to Anesthesiology Urgent Comment: Consulting Provider: Malika Lane Reason for consultation: Epidural Has provider been notified: Yes 11/05/24 14:48 Consult to Public Relations Manager Routine Comment: Discharge provider: Zoe Mckeon DO Summary Hospital Course Date Patient Seen: 11/06/24 Time Patient Seen: 10:17 Diagnoses: Status post vaginal delivery Hospital Course: The patient presented for scheduled induction of labor for cholestasis. She was GBS negative. The FHT was category 1 reassuring. She had Cytotec cervical ripening and a Lisa bulb. She had Pitocin augmentation. She had AROM performed. She had an epidural placed. She continued to progress after and became completely dilated. She pushed well. The baby delivered and was placed on the mother's chest. Delayed cord clamping was performed. The cord was doubly clamped and cut. Cord blood was obtained. The placenta then delivered shortly after. There was a stage IIIA laceration identified with extension into the muscle fibers. This was repaired in the usual fashion using 2 and 3-0 Vicryl. Hemostasis was ensured. There was fundal firmness and minimal bleeding at the end of the procedure. Posterior. The perineum was intact. The patient was stable throughout transferred to in stable condition. , the patient did well. The patient had quick return of normal bowel and bladder function. She remained afebrile with stable vitals. On the day of discharge, her fundus is well contracted, lochia is normal in character and amount, and she is ambulating well without lightheadedness. She is stable and ready for discharge on day 1. Peripartum Data Infant Delivery Method: Natural Vaginal Laceration Description: Perineal - 3rd Degree (Grade 3A) complications: none [place] 1: Gender: Male Disposition of : home Discharge Diagnosis (1) Vaginal delivery: Status: Acute (2) Type 3a perineal laceration: Status: Acute Status at Discharge Cognitive/behavioral status at discharge: at baseline, oriented Time Spent with Patient Time attestation: Total time spent providing and/or coordinating discharge services:37 minutes Time spent: Greater than 30 minutes Objective Labs 11/04/24 22:10 11/04/24 22:10 Exam Const General: cooperative, healthy appearing and well developed Orientation: alert, awake and oriented x3 HENMT Head: normocephalic and atraumatic Resp Effort & Inspection: normal respiratory effort Cardio Rate: regular rate Rhythm: regular rhythm GI Inspection: distended (appropriately) Palpation: soft Skin General: no rashes or lesions noted Neuro General: patient alert and patient oriented x3 Extrem General: edema (2+ BLE) Psych Appearance: grossly normal Discharge Plan Discharge Plan Patient Disposition: Home Discharge orders & Medications Prescriptions: New ibuprofen 600 mg tablet 600 mg PO Q6H PRN (Reason: Mild Pain) Qty: 60 0RF Rx Instructions: Alternate with Tylenol acetaminophen [Tylenol Extra Strength] 500 mg tablet 500 mg PO Q6H PRN (Reason: Mild pain) Qty: 60 0RF Rx Instructions: Alternate with Ibuprofen senna 8.6 mg capsule 8.6 mg PO BEDTIME PRN (Reason: constipation) Qty: 30 0RF Continued hydroxyzine HCl 25 mg tablet 25 mg PO BID PRN (Reason: anxiety) Qty: 20 0RF [id number] oil 400 mcg-35 mg -25 mg-5 mg tablet,chewable PO magnesium glycinate 100 mg magnesium capsule PO omeprazole 40 mg capsule,delayed release(DR/EC) 40 mg PO DAILY Qty: 30 12RF Discontinued ursodiol 400 mg capsule 400 mg PO TID Qty: 90 3RF Follow up/Referrals: Darrel Ibrahim MD [Primary Care Provider, [facility]] Discharge Health Status Multidrug resistant organism: No MDRO Diet/Activity/Treatments Diet: Diet as Tolerated Activity: Activity as tolerated. No intercourse, tampons, or douches. No soaking in water or bath tub, or lifting greater than 10 lb for at least 6 weeks. Cold/Heat Therapy: Okay to use heat packs or cold packs to your perineum as needed Skin/Wound/Dressing Care Skin care: Continue to use Dermoplast and witch Mee pads to her perineum as needed. Report to your healthcare provider any signs of infection, such as:: chills, fever and unusual drainage Visit Report/Discharge Packet Stand Alone Forms: Patient Portal/API, Stroke Signs & Symptoms Discharge Data Primary Care Provider: Darrel Ibrahim Attending Provider: Zoe Mckeon Admit Date/Time: 11/02/24 18:30
[2024-11-06 11:09] LABS: Add Manual Diff / Slide Review NO; Hematocrit 29.4 % (36-46); Hemoglobin 10.1 g/dL (12.0-16.0); Lymphocytes Absolute Auto 2400 /uL (1100-4500); Mean Corpuscular HGB Conc 34.4 % (30-36); Mean Corpuscular Hemoglobin 29.3 PG (26-34); Mean Corpuscular Volume 85.1 fL (80-100); Platelet Count 349 X10^3/uL (150-400)
[2024-11-06 15:16] VITALS: BP 127/60
[2024-11-06] MEDS: DERMOPLAST SPRAY 20% 60 ML 1 SPRAY TOP (15:47)
== END 2024-11-06 16:00 | disposition home or self-care (01) | DRG 768 ==
PROVIDERS: Admitting Provider Student in an Organized Health Care Education/Training Program; PCP Family Medicine; Referring Provider Student in an Organized Health Care Education/Training Program; Visit Provider Student in an Organized Health Care Education/Training Program
DX: O26.643 Intrahepatic cholestasis of pregnancy, third trimester (principal); Z37.0 Single live birth; O70.21 Third degree perineal laceration during delivery, IIIa; Z3A.37 37 weeks gestation of pregnancy
CPT/HCPCS: 36415; 59050; 59200; 76815; 80053; 85025; 86850; 86900; 86901; G0378; G0379; J2590